=== PATIENT | male | born 1970 | race Asian ===

== ENCOUNTER 2020-12-10 08:56 | Emergency (ER) | payer MEDICAID ==
[~2020-12-10] VITALS: Ht 162.6 cm; Wt 65.9 kg
[2020-12-10] MEDS ORDERED: morphine 4 MG/ML inj SYRINge IV ONE (09:05)
[2020-12-10] MEDS ORDERED: TETanus/Pertussis (Acell)/Diphther VAC/PF (Tdap-Adult) 0.5ml syringe IMVAC ONE (09:05)
[2020-12-10] MEDS ORDERED: normal saline 1000ml 1,000 ML IV ONE ×2 (09:05→09:50)
[2020-12-10 09:22] LABS: BASOPHILS % (AUTO) 0.3 % (0-1); EOSINOPHILS % (AUTO) 0.1 % (0-6); HEMATOCRIT 51.1 % (42.0-52.0); HEMOGLOBIN 17.7 g/dl (14.0-17.9); LYMPHOCYTES % (AUTO) 9.8 % (21-51); MEAN CORPUSCULAR HEMOGLOBIN 32.1 PG (27.0-31.0); MEAN CORPUSCULAR HGB CONC 34.6 g/dL (33.0-36.5); MEAN CORPUSCULAR VOLUME 92.7 FL (78-98); MEAN PLATELET VOLUME 8.1 FL (7.4-10.4); MONOCYTES # (AUTO) 0.5 X10'3 (0-0.9); MONOCYTES % (AUTO) 4.6 % (2-12); NEUTROPHILS # (AUTO) 8.5 X10'3 (1.8-7.7); NEUTROPHILS % (AUTO) 85.2 % (42-75); PLATELET COUNT 205 X10'3 (140-440); RED BLOOD COUNT 5.51 X10'6 (4.70-6.10); RED CELL DISTRIBUTION WIDTH 13.3 % (11.5-14.5)
[2020-12-10] MEDS ORDERED: bacitracin 15gm ointment TP ONE (09:25)
[2020-12-10] MEDS ORDERED: morphine 10mg/ml inj. IV PRN (09:25)
[2020-12-10 09:44] LABS: ALANINE AMINOTRANSFERASE 93 U/L (12-78); ALBUMIN 3.9 G/DL (3.4-5.0); ALBUMIN/GLOBULIN RATIO 0.9 (1.1-1.5); ALKALINE PHOSPHATASE 104 IU/L (46-116); ANION GAP 14 (8-16); ASPARTATE AMINO TRANSFERASE 66 U/L (10-37); BILIRUBIN,TOTAL 0.9 MG/DL (0.1-1.0); BLOOD UREA NITROGEN 18 MG/DL (7-18); BUN/CREATININE RATIO 19.6 (5.4-32.0); CALCIUM 9.2 MG/DL (8.5-10.1); CHLORIDE 104 MMOL/L (99-107); CREATININE 0.92 MG/DL (0.60-1.10); GLUCOSE 144 MG/DL (70-104); POTASSIUM 3.4 MMOL/L (3.5-5.1); SODIUM 139 MMOL/L (135-145); TOTAL CARBON DIOXIDE 20.9 MMOL/L (24-32); TOTAL PROTEIN 8.1 G/DL (6.4-8.2); eGFR 86 ML/MIN
--- NOTE | 2020-12-10 10:10 | NUR ---
REPORT CALLED TO BOZENA NEWMAN AT [facility]
[2020-12-10 10:28] VITALS: BP 145/97
--- NOTE | 2020-12-10 11:17 | NUR ---
REPORT GIVEN TO REACH TEAM.
== END 2020-12-10 12:08 | disposition short-term general hospital (02) ==
LOC: ER 08:57
DX: T23.372A Burn of third degree of left wrist, initial encounter (principal); T26.02XA Burn of left eyelid and periocular area, initial encounter; T26.01XA Burn of right eyelid and periocular area, initial encounter; T20.22XA Burn of second degree of lip(s), initial encounter; T20.26XA Burn of second degree of forehead and cheek, initial encounter; T20.27XA Burn of second degree of neck, initial encounter; T23.252A Burn of second degree of left palm, initial encounter; T23.262A Burn of second degree of back of left hand, initial encounter; T23.251A Burn of second degree of right palm, initial encounter; T23.261A Burn of second degree of back of right hand, initial encounter; T24.232A Burn of second degree of left lower leg, initial encounter; T31.0 Burns involving less than 10% of body surface; X97.XXXA Assault by smoke, fire and flames, initial encounter; Y93.89 Activity, other specified; Y92.89 Other specified places as the place of occurrence of the external cause; Y99.8 Other external cause status
CPT/HCPCS: 16000; 36415; 80053; 85025; 85610; 90471; 90715; 96374; 96376; 99291; J2270; J7030

== ENCOUNTER 2023-10-24 09:36 | Day surgery (SDC) | payer MEDICAID ==
[~2023-10-24] VITALS: Ht 165.1 cm; Wt 69.1 kg
[2023-10-24] VITALS (7 sets, daily range): BP systolic 130–150; BP diastolic 88–96; PULSE 61–72; RESP 15–17; TEMP 98; O2SAT 94–97
[2023-10-24] MEDS ORDERED: LISI2.5T14 PO (10:02)
[2023-10-24] MEDS ORDERED: THIA100T66 PO (10:02)
[2023-10-24] MEDS ORDERED: ENTE0.5T12 PO (10:02)
[2023-10-24 11:48] LABS: APPEARANCE,CSF CLEAR; CSF RBC 1 /CU MM (0); CSF SUPERNATANT COLOR COLORLESS; CSF VOLUME 14 ML; CSF WBC CT 2 /CU MM (0-5); TUBE# COUNTED 3
[2023-10-24 12:07] LABS: GLUCOSE,CSF 62 MG/DL (40-75); TOTAL PROTEIN,CSF 80 MG/DL (15-45)
[2023-10-28 13:12] LABS: VDRL, CSF Non Reactive (Non Rea:<1:1)
== END 2023-10-24 12:50 | disposition home or self-care (01) ==
LOC: SSTAY O 09:36
PROVIDERS: ATTEND Psychiatry & Neurology Neurology
DX: R53.1 Weakness (principal); M62.562 Muscle wasting and atrophy, not elsewhere classified, left lower leg; F80.1 Expressive language disorder; I10 Essential (primary) hypertension; G62.9 Polyneuropathy, unspecified; B18.1 Chronic viral hepatitis B without delta-agent; Z98.890 Other specified postprocedural states; Z79.899 Other long term (current) drug therapy
CPT/HCPCS: 36415; 62328; 77002; 82164; 82945; 83916; 84157; 86592; 86617; 87899; 89051